=== PATIENT | female | born 1975 | race Caucasian/White ===

== ENCOUNTER → 2016-10-15 | Outpatient (CLI) | payer OTHER ==
[2016-10-15 10:35] LABS: Basophils % (A) 0 %; CH 27.9; CHCM 32.7; Eosinophils # (A) 0.1 k/uL (0-0.7); Eosinophils % (A) 1 %; HCT 39.9 % (34.0-46.0); HDW 2.31; Luc # (Auto) 0.12; Luc % (Auto) 2; Lymphocytes # (A) 2.5 k/uL (1.0-4.8); Lymphocytes % (A) 37 %; MCH 27.9 pg (25.0-35.0); MCHC 32.5 g/dL (31.0-37.0); MCV 85.8 fL (80.0-100.0); Mean Platelet Volume 6.8; Monocytes # (A) 0.3 k/uL (0-1.0); Monocytes % (A) 4 %; Neutrophils # (A) 3.9 k/uL (1.3-7.7); Neutrophils % (A) 56 %; RBC 4.65 m/uL (3.80-5.40); RDW 13.7 % (11.5-15.5); WBC (Perox) 6.96
[2016-10-15 10:53] LABS: ALT 25 U/L (9-52); AST 14 U/L (14-36); Alkaline Phosphatase 62 U/L (38-126); Anion Gap 10 mmol/L; Blood Urea Nitrogen 15 mg/dL (7-17); Calcium 9.3 mg/dL (8.4-10.2); Carbon Dioxide 26 mmol/L (22-30); Chloride 106 mmol/L (98-107); Cholesterol 190 mg/dL (<200); Creatine Kinase 36 U/L (30-135); Glucose 92 mg/dL (74-99); HDL Cholesterol 86 mg/dL (40-60); Magnesium 1.9 mg/dL (1.6-2.3); Non-African American GFR(MDRD) >60 (>60 ml/min/1.73 sqM); Potassium 4.7 mmol/L (3.5-5.1); Sodium 142 mmol/L (137-145); Total Bilirubin 0.4 mg/dL (0.2-1.3); Total Protein 7.1 g/dL (6.3-8.2); Triglycerides 64 mg/dL (<150)
[2016-10-15 11:39] LABS: Vitamin B12 739 pg/mL (239-931)
== END | disposition home or self-care (01) ==
LOC: LABWHC1 09:09
PROVIDERS: ATTEND Family Medicine
DX: E55.9 Vitamin D deficiency, unspecified (principal); E53.8 Deficiency of other specified B group vitamins; I44.1 Atrioventricular block, second degree; Z13.228 Encounter for screening for other metabolic disorders; Z13.220 Encounter for screening for lipoid disorders
CPT/HCPCS: 36415; 80053; 80061; 82306; 82550; 82607; 83735; 84439; 84443; 85025

== ENCOUNTER → 2019-01-16 | Outpatient (CLI) | payer BC ==
--- NOTE | 2019-01-16 08:56 | US ---
EXAMINATION TYPE: US pelvis complete transvag DATE OF EXAM: 01/16/2019 COMPARISON: NONE CLINICAL HISTORY: R10.2 Pelvic Pain. Left side pain, TECHNIQUE: Transvaginal (TV) and Transabdominal (TA) . Transabdominal sonographic images of the pel vis were acquired. Transvaginal sonographic images were medically necessary to better assess the fol lowing anatomy: Endometrium Date of LMP: 01/01/2019, EXAM MEASUREMENTS: Uterus: 9.3 x 5.7 x 4.0 cm Endometrial Stripe: 1.5 cm Right Ovary: 3.1 x 2.1 x 2.0 cm Left Ovary: 3.3 x 2.0 x 1.8 cm 1. Uterus: Anteverted Heterogenous 2. Endometrium: Upper limits of normal for cycle, heterogenous 3. Right Ovary: Dominant follicle = 2.0 cm 4. Left Ovary: wnl 5. Bilateral Adnexa: small amount of free fluid seen adjacent to left ovary 6. Posterior cul-de-sac: Free fluid Cervix- nabothian cysts, free fluid seen in cervical canal IMPRESSION: 1. The endometrium is diffusely heterogenous and upper limits of normal for the patient's age and pha se of menses. This could be further evaluated with sonohysterogram or direct visualization, or short- term follow-up ultrasound in 1-3 months. 2. Dominant right ovarian follicle is incidentally seen as is a small amount of free fluid, likely ph ysiologic in nature. 3. Trace amount of fluid in the cervix is also incidentally seen.
== END | disposition home or self-care (01) ==
LOC: RADUSWWP 08:07
PROVIDERS: ATTEND Family Medicine
DX: R10.2 Pelvic and perineal pain (principal)
CPT/HCPCS: 76830; 76856

== ENCOUNTER → 2019-02-08 | Outpatient (CLI) | payer BC ==
[2019-02-08 20:06] LABS: Rheumatoid Factor 5 IU/mL (0-15)
[2019-02-08 20:23] LABS: Hepatitis A Antibody IgM Non-Reactive (Non-Reactive); Hepatitis B Core IgM Non-Reactive (Non-Reactive); Hepatitis B Surface Antigen Non-Reactive (Non-Reactive); Hepatitis C IgG Antibody Non-Reactive (Non-Reactive)
[2019-02-09 08:11] LABS: HLA B27 NEGATIVE
[2019-02-09 09:34] LABS: Angiotensin-1 Converting Enz. 38 U/L (8-52)
[2019-02-11 15:04] LABS: C-ANCA <1:20 Titer (<1:20)
[2019-02-12 12:44] LABS: Lyme IgG/IgM 0.09 Index; Lyme IgG/IgM Interp NEGATIVE (NEGATIVE)
[2019-02-12 13:36] LABS: Lysozyme, Serum or Body Fluid 4.9 mcg/mL (5.0-11.0)
== END | disposition home or self-care (01) ==
LOC: LABWHC1 10:23
PROVIDERS: ATTEND Ophthalmology
DX: H20.9 Unspecified iridocyclitis (principal)
CPT/HCPCS: 36415; 80074; 82164; 85549; 85652; 86038; 86140; 86255; 86431; 86618; 86780; 86812

== ENCOUNTER → 2019-09-09 | Outpatient (CLI) | payer BC ==
--- NOTE | 2019-09-09 11:10 | MM ---
Reason for exam: screening (asymptomatic). Baseline mammogram. Physical Findings: Nurse did not find any significant physical abnormalities on exam. MG 3D Screening Mammo W/Cad Bilateral CC and MLO view(s) were taken. There are scattered fibroglandular densities. No suspicious abnormality. Left axillary cardiac device obscures the high axilla. These results were verbally communicated with the patient and result sheet given to the patient on 09/09/19. ASSESSMENT: Negative, BI-RAD 1 RECOMMENDATION: Routine screening mammogram of both breasts in 1 year.
== END | disposition home or self-care (01) ==
LOC: RADMAMWWP 10:00
PROVIDERS: ATTEND Family Medicine
DX: Z12.31 Encounter for screening mammogram for malignant neoplasm of breast (principal)
CPT/HCPCS: 77063; 77067

== ENCOUNTER → 2021-03-04 | Outpatient (CLI) | payer BC ==
--- NOTE | 2021-03-08 12:05 | MM ---
Reason for exam: screening (asymptomatic). Last mammogram was performed 1 year and 6 months ago. History: Took hormonal contraceptives for 4 years. Physical Findings: A clinical breast exam by your physician is recommended on an annual basis and results should be correlated with mammographic findings. MG 3D Screening Mammo W/Cad Bilateral CC and MLO view(s) were taken. Prior study comparison: September 09, 2019, bilateral MG 3d screening mammo w/cad. Partially visualized left pacemaker generator. No significant changes when compared with prior studies. ASSESSMENT: Negative, BI-RAD 1 RECOMMENDATION: Routine screening mammogram of both breasts in 1 year.
== END | disposition home or self-care (01) ==
LOC: RADMAMWWP 07:10
PROVIDERS: ATTEND Family Medicine
DX: Z12.31 Encounter for screening mammogram for malignant neoplasm of breast (principal)
CPT/HCPCS: 77063; 77067

== ENCOUNTER → 2021-06-11 | Outpatient (CLI) | payer BC ==
--- NOTE | 2021-06-11 15:02 | US ---
EXAMINATION TYPE: US pelvic complete DATE OF EXAM: 06/11/2021 COMPARISON: Prior ultrasound January 16, 2019 CLINICAL HISTORY: R10.2 Pelvic pain. Late menses TECHNIQUE: Transabdominal (TA). Transabdominal sonographic images of the pelvis were acquired Date of LMP: 05/06/2021 EXAM MEASUREMENTS: Uterus: 10.9x7.0x4.4 cm Endometrial Stripe: 2.4 cm Right Ovary: 2.4x1.9x1.5 cm Left Ovary: 3.5x2.8x3.4 cm 1. Uterus: Anteverted wnl 2. Endometrium: Thickened 3. Right Ovary: wnl 4. Left Ovary: Follicle noted. 5. Bilateral Adnexa: Trace amount of free fluid adjacent to bilateral ovaries 6. Posterior cul-de-sac: wnl IMPRESSION: Suboptimal study as only transabdominal evaluation performed. Abnormal thickening of the endometrium is present. Consider dilatation and curettage follow-up to further evaluate.
== END | disposition home or self-care (01) ==
LOC: RADUSWWP 14:25
PROVIDERS: ATTEND Family Medicine
DX: R10.2 Pelvic and perineal pain (principal)
CPT/HCPCS: 76856

== ENCOUNTER → 2022-03-09 | Outpatient (CLI) | payer BC ==
--- NOTE | 2022-03-09 14:12 | US ---
EXAMINATION TYPE: US transvaginal DATE OF EXAM: 03/09/2022 COMPARISON: US 09/27/21 CLINICAL HISTORY: N83.292 OVARIAN CYST LT SIDE. Lt ovarian cyst TECHNIQUE: Transvaginal (TV). Transvaginal sonographic images were medically necessary to better assess the following anatomy: Date of LMP: EXAM MEASUREMENTS: Uterus: 8.7 x 5.0 x 7.3 cm Endometrial Stripe: 1.7 cm Right Ovary: 2.7 x 1.5 x 1.8 cm Left Ovary: 3.4 x 1.9 x 2.8 cm 1. Uterus: Anteverted Multiple fibroids seen throughout uterus, largest two measured,Rt 1.9 x 1.7 x 1.5 cm Lt 2.2 x 1.8 x 1.9 cm, nabothian cysts noted in cervix area 2. Endometrium: Appears thickened 3. Right Ovary: Follicles seen largest measures 1.0 x 0.7 x 0.8 cm 4. Left Ovary: Multiple follicles seen, largest measures 1.0 x 1.3 x 1.3 cm 5. Bilateral Adnexa: Appears wnl 6. Posterior cul-de-sac: Small amount of free fluid seen IMPRESSION: 1. Fibroid uterus. 2. Resolution of previously noted ovarian cyst. Small follicles now identified.
== END | disposition home or self-care (01) ==
LOC: RADUSWWP 12:58
PROVIDERS: ATTEND Family Medicine
DX: N83.292 Other ovarian cyst, left side (principal)
CPT/HCPCS: 76830

== ENCOUNTER → 2023-03-27 | Outpatient (CLI) | payer BC ==
--- NOTE | 2023-03-27 14:06 | US ---
EXAMINATION TYPE: US transvaginal DATE OF EXAM: 03/27/2023 COMPARISON: Pelvic ultrasound 03/09/2022, 09/27/2021, 06/11/2021 CLINICAL INDICATION: Female, 47 years old with history of N85.00 ENDOMETRIAL HYPERPLASIA, UNSPECIFIED ; Heavy menses TECHNIQUE: Transvaginal (TV). Date of LMP: 03/17/23 EXAM MEASUREMENTS: Uterus: 10.2 x 4.5 x 6.8 cm Endometrial Stripe: 0.8 cm Right Ovary: unable to visualize Left Ovary: unable to visualize 1. Uterus: Anteverted Nabothian cysts. Fibroids noted, largest = 3.4 x 2.8 x 2.7cm and 2.0 x 1.8 x 2.1cm 2. Endometrium: appears wnl 3. Right Ovary: Obscured by overlying bowel gas 4. Left Ovary: Obscured by overlying bowel gas 5. Bilateral Adnexa: appears wnl 6. Posterior cul-de-sac: small amount of free fluid, likely physiologic. IMPRESSION: 1. No acute pelvic process. 2. Fibroid changes of the uterus redemonstrated. 3. Both ovaries not visualized due to overlying bowel gas.
--- NOTE | 2023-03-28 14:33 | MM ---
Reason for Exam: Screening (asymptomatic). Last mammogram was performed 2 year(s) and 1 month(s) ago. Patient History: Menarche at age 13. First Full-Term at age 28. Patient used Hormonal Contraceptives for 4 years. Last menstrual period: 03/17/2023 Risk Values: Bethany 5 year model risk: 1.0%. NCI Lifetime model risk: 11.6%. Prior Study Comparison: 09/09/2019 Bilateral Screening Mammogram, [facility]. 03/04/2021 Bilateral Screening Mammogram, [facility]. Tissue Density: There are scattered fibroglandular densities. Findings: Analyzed By CAD. Pattern appears symmetrical and stable. No significant interval change is evident. Pacemaker overlies the left breast. No suspicious groups of microcalcifications, spiculated or lobular masses, architectural distortion or other secondary signs of malignancy are mammographically apparent. Overall Assessment: Benign, BI-RAD 2 Management: Screening Mammogram of both breasts in 1 year. A negative mammogram report should not preclude additional follow up of suspicious palpable abnormalities. Patient should continue monthly self breast exam. A clinical breast exam by your physician is recommended on an annual basis and results should be correlated with mammographic findings. Electronically signed and approved by: Juan Abel D.O. Radiologis
== END | disposition home or self-care (01) ==
LOC: RADMAMWWP 13:04
PROVIDERS: ATTEND Family Medicine
DX: Z12.31 Encounter for screening mammogram for malignant neoplasm of breast (principal); D25.9 Leiomyoma of uterus, unspecified; N85.00 Endometrial hyperplasia, unspecified; N92.0 Excessive and frequent menstruation with regular cycle; R14.0 Abdominal distension (gaseous)
CPT/HCPCS: 76830; 77063; 77067

== ENCOUNTER 2023-10-14 16:02 | Emergency (ER) | payer BC ==
[2023-10-14 16:27] VITALS: BP 160/89; PULSE 89; RESP 18; TEMP 97.6
--- NOTE | 2023-10-14 16:41 | ED ---
Wound/Laceration HPI - General Chief Complaint: Wound/Laceration Stated Complaint: Laceration on L thumb Time Seen by Provider: 10/14/23 16:07 Source: patient Mode of arrival: ambulatory Limitations: no limitations - History of Present Illness Initial Comments: 48-year-old female presenting with chief complaint of laceration. Patient was redoing her bathroom and cutting wallpaper when she accidentally caught her left thumb. She has been applying pressure and there is still slight bleeding from the wound. She is unsure if her tetanus is up-to-date. She still has full range of motion and sensation. - Related Data Home Medications Medication Instructions Recorded Confirmed SUMAtriptan succinate [Imitrex] 25 mg PO DIRECTED PRN 11/13/13 05/08/14 Cholecalciferol [Vitamin D3 (25 2,000 unit PO DAILY 01/30/14 05/08/14 Mcg = 1000 Iu)] Ibuprofen [Motrin] 2 tab PO ONCE PRN 05/08/14 05/08/14 Previous Rx's Medication Instructions Recorded HYDROcodone/APAP 5-325MG [[place] 1 each PO Q4HR PRN #30 tab 05/09/14 5-325] Allergies Allergy/AdvReac Type Severity Reaction Status Date / Time Iodinated Contrast Media Allergy HIVES Verified 10/14/23 16:06 [Iodinated Contrast Media - IV Dye] Review of Systems ROS Statement: Those systems with pertinent positive or pertinent negative responses have been documented in the HPI. ROS Other: All systems not noted in ROS Statement are negative. Past Medical History Past Medical History: Chest Pain / Angina Additional Past Medical History / Comment(s): SEE DR AVILES'S H&P, migraines History of Any Multi-Drug Resistant Organisms: None Reported Past Surgical History: Appendectomy, Section Additional Past Surgical History / Comment(s): ORAL SURGERY, TILT TABLE TEST Past Anesthesia/Blood Transfusion Reactions: Motion Sickness Past Psychological History: No Psychological Hx Reported Smoking Status: Never smoker Past Alcohol Use History: Occasional Past Drug Use History: None Reported - Past Family History Father Family Medical History: Cancer General Exam Limitations: no limitations General appearance: alert, in no apparent distress Head exam: Present: atraumatic, normocephalic Eye exam: Present: normal appearance, EOMI Neck exam: Present: normal inspection Respiratory exam: Absent: respiratory distress Cardiovascular Exam: Present: regular rate Neurological exam: Present: alert, oriented X3 Psychiatric exam: Present: normal affect, normal mood Expanded Type of lesion: Present: laceration (2 cm left thumb) Course Vital Signs 10/14/23 16:03 Temperature 97.6 F Pulse Rate 89 Respiratory 18 Rate Blood Pressure 160/89 O2 Sat by Pulse 100 Oximetry Procedures - Laceration Laceration #1 Consent Obtained: verbal consent Indication: laceration Site: hand Size (cm): 2 Description: linear Depth: simple, single layer Anesthetic Used: lidocaine 1%, without epi Anesthesia Technique: local infiltration Pre-repair: wound explored, irrigated extensively Type of Sutures: nylon Size of Sutures: 4-0 Number of Sutures: 4 Technique: simple, interrupted Patient Tolerated Procedure: well Medical Decision Making - Medical Decision Making Was pt. sent in by a medical professional or institution (, PA, DISTRIBUTION CLERK, urgent care, hospital, or snf...) When possible be specific @ -No Did you speak to anyone other than the patient for history (EMS, parent, family, police, friend...)? What history was obtained from this source @ -No Did you review nursing and triage notes (agree or disagree)? Why? @ -I reviewed and agree with nursing and triage notes Were old charts reviewed (outside hosp., previous admission, EMS record, old EKG, old radiological studies, urgent care reports/EKG's, snf records)? Report findings @ -No old charts were reviewed Differential Diagnosis (chest pain, altered mental status, abdominal pain women, abdominal pain men, vaginal bleeding, weakness, fever, dyspnea, syncope, headache, dizziness, GI bleed, back pain, seizure, CVA, palpatations, mental health, musculoskeletal)? @ -Not applicable EKG interpreted by me (3pts min.). @ -As above X-rays interpreted by me (1pt min.). @ -None done CT interpreted by me (1pt min.). @ -None done U/S interpreted by me (1pt. min.). @ -None done What testing was considered but not performed or refused? (CT, X-rays, U/S, labs)? Why? @ -None What meds were considered but not given or refused? Why? @ -None Did you discuss the management of the patient with other professionals (honey galicia i.eFidencio Echeverria, PA, DISTRIBUTION CLERK, lab, RT, psych nurse, social services manager, statistical machine mechanic, teacher, earth science technical officer, embedded case manager)? Give summary @ -No Was smoking cessation discussed for >3mins.? @ -No Was critical care preformed (if so, how long)? @ -No Were there social determinants of health that impacted care today? How? (Homelessness, low income, unemployed, alcoholism, drug addiction, transportation, low edu. Level, literacy, decrease access to med. care, prison, rehab)? @ -No Was there de-escalation of care discussed even if they declined (Discuss DNR or withdrawal of care, Hospice)? DNR status @ -No What co-morbidities impacted this encounter? (DM, HTN, Smoking, COPD, CAD, Cancer, CVA, ARF, Chemo, Hep., AIDS, mental health diagnosis, sleep apnea, morbid obesity)? @ -None Was patient admitted / discharged? Hospital course, mention meds given and route, prescriptions, significant lab abnormalities, going to OR and other pertinent info. @ -48-year-old female present with chief complaint of 2 cm laceration to left thumb she obtained while cutting wallpaper. Her tetanus is updated today. The wound is cleansed and repaired, see procedure note for details. She is educated on wound care and signs of infection. Discharged home. Follow-up with PCP. Report back to ER with any new or worsening symptoms. Discussed return parameters and answered all questions. Patient conveyed verbal understanding and agreed to the plan. I discussed this case in detail with my attending Dr. Roman Undiagnosed new problem with uncertain prognosis? @ -No Drug Therapy requiring intensive monitoring for toxicity (Heparin, Nitro, Insulin, Cardizem)? @ -No Were any procedures done? @ -Laceration repair Diagnosis/symptom? @ -Laceration Acute, or Chronic, or Acute on Chronic? @ -Acute Uncomplicated (without systemic symptoms) or Complicated (systemic symptoms)? @ -Uncomplicated Side effects of treatment? @ -No Exacerbation, Progression, or Severe Exacerbation? @ -No Poses a threat to life or bodily function? How? (Chest pain, USA, MD, pneumonia, PE, COPD, DKA, ARF, appy, cholecystitis, CVA, Diverticulitis, Homicidal, Suicidal, threat to staff... and all critical care pts) @ -No Disposition Clinical Impression: Laceration Disposition: HOME SELF-CARE Condition: Good Instructions (If sedation given, give patient instructions): Care For Your Stitches (ED), Laceration (ED) Additional Instructions: Follow-up with PCP. Report back to ER with any new or worsening symptoms. Keep the wound clean dry and covered. Wash regularly with soap and water. Avoid fully submerging the wound in water for prolonged periods of time. Monitor for signs of infection, including but not limited to redness, swelling, warmth, tenderness, discharge, fever. Sutures may be removed in 10 to 14 days Is patient prescribed a controlled substance at d/c from ED?: No Referrals: Grace Steinberg MD [Primary Care Provider] - 1-2 days Time of Disposition: 16:40
[2023-10-14] MEDS: DIPH,PERTUS(ACELL)TETVAC-LF 0.5 ML VIAL IM ONE (16:43)
== END 2023-10-14 16:50 | disposition home or self-care (01) ==
LOC: EC 16:02
DX: S61.012A Laceration without foreign body of left thumb without damage to nail, initial encounter (principal); Z91.041 Radiographic dye allergy status; Z23 Encounter for immunization; W26.8XXA Contact with other sharp object(s), not elsewhere classified, initial encounter
CPT/HCPCS: 12001; 90471; 90715; 99282

== ENCOUNTER → 2024-04-01 | Outpatient (CLI) | payer MEDICAID ==
--- NOTE | 2024-04-04 12:12 | MM ---
Reason for Exam: Screening (asymptomatic). Last screening mammogram was performed 12 month(s) ago. Patient History: Menarche at age 13. First Full-Term at age 28. Perimenopausal. Patient used Hormonal Contraceptives for 4 years. Risk Values: Bethany 5 year model risk: 1.0%. NCI Lifetime model risk: 11.4%. Prior Study Comparison: 09/09/2019 Bilateral Screening Mammogram, [facility]. 03/04/2021 Bilateral Screening Mammogram, [facility]. 03/27/2023 Bilateral MG 3D screening mammo w/cad, [facility]. Tissue Density: The breasts are heterogeneously dense, which may obscure small masses. Findings: Analyzed By CAD. There is no suspicious group of microcalcifications or new suspicious mass in either breast. Metallic cardiac device overlying the left axilla obscures portions of the region. Overall Assessment: Benign, BI-RAD 2 Management: Screening Mammogram of both breasts in 1 year. . Patient should continue monthly self-breast exams. A clinical breast exam by your physician is recommended on an annual basis. This exam should not preclude additional follow-up of suspicious palpable abnormalities. Note on Bethany scores and lifetime risk: 1. A Bethany score greater than 3% is considered moderate risk. If this is the case, consider specialist referral to assess eligibility for a risk reducing agent. 2. If overall lifetime risk for the development of breast cancer is 20% or higher, the patient may qualify for future screening with alternating mammogram and breast MRI. [facility], , 04/04/2024 12:09 PM. Electronically signed and approved by: Yefri Aguilar M.D. Radiologis
== END | disposition home or self-care (01) ==
LOC: RADMAMWWP 08:46
PROVIDERS: ATTEND Family Medicine
DX: Z12.31 Encounter for screening mammogram for malignant neoplasm of breast
CPT/HCPCS: 77063; 77067

== ENCOUNTER → 2024-08-12 | Outpatient (CLI) | payer MEDICAID ==
[2024-08-12 16:51] LABS: HCT 37.3 % (37.2-46.3); HGB 12.1 g/dL (12.0-15.0); MCH 27.6 pg (27.0-32.0); MCHC 32.4 g/dL (32.0-37.0); Mean Platelet Volume 10.5 FL (9.5-12.2); NRBC Per 100 WBC 0 X 10*3/uL (0.00-0.01); Platelet Count 243 X 10*3/uL (140-440); RBC 4.39 X 10*6/uL (4.10-5.20); RDW 12.6 % (11.5-14.5); WBC 6.02 X 10*3/uL (4.50-10.00)
[2024-08-12 16:52] LABS: Basophils # (A) 0.03 X 10*3/uL (0.00-0.10); Basophils % (A) 0.5 %; Eosinophils # (A) 0.05 X 10*3/uL (0.04-0.35); Eosinophils % (A) 0.8 %; Lymphocytes # (A) 2.59 X 10*3/uL (0.90-5.00); Monocytes # (A) 0.45 X 10*3/uL (0.20-1.00); Monocytes % (A) 7.5 %; Neutrophils # (A) 2.89 X 10*3/uL (1.80-7.70)
[2024-08-12 17:55] LABS: ALT 13 U/L (8-44); AST 12 U/L (13-35); Albumin 3.8 g/dL (3.8-4.9); Albumin/Globulin Ratio 1.46 Ratio (1.60-3.17); Alkaline Phosphatase 67 U/L (41-126); BUN/Creat Ratio 18.25 Ratio (12.00-20.00); Blood Urea Nitrogen 14.6 mg/dL (9.0-27.0); Calcium 8.9 mg/dL (8.7-10.3); Carbon Dioxide 25.7 mmol/L (21.6-31.8); Chloride 107 mmol/L (96-109); Chol/HDL Ratio 2.37 Ratio; Globulin 2.6 g/dL (1.6-3.3); Glucose 94 mg/dL (70-110); LDL Cholesterol,Calculated 74.3 mg/dL (0.0-131.0); Potassium 4.4 mmol/L (3.5-5.5); Sodium 143 mmol/L (135-145); Total Bilirubin 0.2 mg/dL (0.3-1.2); Total Protein 6.4 g/dL (6.2-8.2); VLDL Calculation 12.42 mg/dL (5.00-40.00)
== END | disposition home or self-care (01) ==
LOC: LABWHC1 09:32
PROVIDERS: ATTEND Family Medicine
DX: Z13.220 Encounter for screening for lipoid disorders (principal); I12.9 Hypertensive chronic kidney disease with stage 1 through stage 4 chronic kidney disease, or unspecified chronic kidney disease; E88.810 Metabolic syndrome; E55.9 Vitamin D deficiency, unspecified; D51.9 Vitamin B12 deficiency anemia, unspecified
CPT/HCPCS: 36415; 80053; 80061; 82306; 82607; 83036; 84443; 85025